=== PATIENT | male | born 1985 | race Caucasian/White ===

== ENCOUNTER 2023-10-29 17:23 | Emergency (ER) | payer OTHER, SELFPAY ==
[2023-10-29 17:33] VITALS: BP 137/77; PULSE 83; RESP 18; TEMP 36.8; O2SAT 98
--- NOTE | 2023-10-29 17:44 | ED.SKABFB ---
HPI - Skin/Abscess/Foreign Bdy General Chief complaint: Skin/Abscess/Foreign Body Stated complaint: skin infection Time Seen by Provider: 10/29/23 17:36 Source: patient and RN notes reviewed Mode of arrival: ambulatory Limitations: dementia History of Present Illness HPI narrative: 38-year-old male presents with concern for skin infection. Reports 4 day history of area of redness, tenderness with swelling to his left thigh. He denies itching. He denies any drainage from the area. He denies fever, chills, sweats, body aches. Reports history of similar skin infections. MD complaint: other (Redness) Related Data Allergies Allergy/AdvReac Type Severity Reaction Status Date / Time amoxicillin Allergy Unknown Swelling Verified 10/29/23 17:37 Review of Systems Review of Systems: CONSTITUTIONAL: Denies malaise, chills, sweats, or fever. EYES: Denies redness, or discharge. ENT: Denies rhinorrhea, congestion, swollen lips, swollen tongue CARDIOVASCULAR: Denies chest pain, palpitations, or edema. RESPIRATORY: Denies cough or dyspnea. GASTROINTESTINAL: Denies abdominal pain, nausea, vomiting SKIN: Reports redness, swelling tenderness to the left thigh. Denies purulent drainage, vesicles, bullae, numbness, pain beyond proportion MUSCULOSKELETAL: Denies joint pain or myalgia. NEUROLOGIC: Denies headache. All systems reviewed & are unremarkable except as noted in HPI and below PMFSH Past Medical History Medical History (Updated 10/29/23 @ 17:46 by Sandi Bain NP) BCC (basal cell carcinoma of skin) History of Mohs micrographic surgery for skin cancer Family History Family History (Updated 09/08/16 @ 14:29 by DOCTOR UNKNOWN) Other Diabetes mellitus Social History Social History (Updated 12/14/20 @ 14:08 by Alea Espinoza CMA) Smoking status: Current every day smoker Tobacco type: smokeless tobacco Smokeless tobacco user: chewing tobacco Alcohol intake: current Substance use: never Substance use type: does not use Comments At time of signature, agree with nursing past medical, surgical, social and family history. There is no relevant family history pertinent to the presenting complaint Exam Narrative: GENERAL: Well-appearing, well-nourished, and in no acute distress. HEAD: Normocephalic, atraumatic. EYES: PERRLA, conjunctivae clear ENT: Mucous membranes moist. NECK: Supple. No lymphadenopathy CHEST: Clear to auscultation. No respiratory distress. HEART: Regular rate and rhythm. SKIN: Warm, dry. 2 cm indurated area surrounded by 8 x 7 cm area of erythema tenderness, warmth with sharp margins without fluctuation noted to the left inner thigh. No vesicles, bullae, necrosis, ecchymosis, crepitus noted. NEURO: Alert and oriented x3. PSYCH: Normal mood and affect Course Course Emergency Course: Patient is aware of diagnosis, understands and agrees to treatment plan. Anticipatory guidance given. Patient agrees to follow-up as directed and is aware of reasons to seek care at the emergency department. Portions of this record may have been created with voice recognition software Level of Care: Express Care Visit Vital Signs Vital signs: Vital Signs Temperature 98.2 F 10/29/23 17:33 Pulse Rate 83 10/29/23 17:33 Respiratory Rate 18 10/29/23 17:33 Blood Pressure 137/77 10/29/23 17:33 Pulse Oximetry 98 10/29/23 17:33 Oxygen Delivery Room Air 10/29/23 17:33 Temperature 98.2 F 10/29/23 17:33 Pulse Rate 83 10/29/23 17:33 Respiratory Rate 18 10/29/23 17:33 Blood Pressure 137/77 10/29/23 17:33 Pulse Oximetry 98 10/29/23 17:33 Oxygen Delivery Room Air 10/29/23 17:33 Reviewed. MDM - Skin/Abscess/Foreign Bdy MDM Narrative Medical decision making narrative: I evaluated this in the express care. History is obtained from patient who is an independent historian and physical exam was performed.? Available medical records were reviewed. ? Ex
== END 2023-10-29 17:50 | disposition home or self-care (01) ==
PROVIDERS: Emergency Provider Nurse Practitioner
DX: L03.116 Cellulitis of left lower limb (principal); F17.220 Nicotine dependence, chewing tobacco, uncomplicated; Z85.828 Personal history of other malignant neoplasm of skin
CPT/HCPCS: 99213; G0463